=== PATIENT | female | born 1960 | race Caucasian/White ===

== ENCOUNTER → 2016-07-17 | Outpatient (CLI) | payer BC, OTHER ==
--- NOTE | 2016-07-17 16:15 | MA ---
Screening Digital Mammogram With iCAD Analysis Reason for Examination: Routine screening. Breast parenchymal density: Type C; Heterogeneously dense. Technique: Four views of each breast are obtained including CC and oblique lateral Burke (implant di splaced) and non-Burke (implant not displaced) views. Digital breast tomosynthesis was performed in the implant-displaced MLO projection with reconstruction at 1.0 mm slice thickness and composite MLO views reconstructed. This examination is processed by the iCAD computer aided detection system. Comparison: May 2015, April 2014, January 2013, December 2012, November 2008.. Findings: Breast implants are in place bilaterally. iCAD is reviewed.No suspicious areas are identifi ed. There has been no significant change in the appearance of either breast. Breast implants diminish the sensitivity of mammography. Impression: Negative mammogram. BI-RADS 1. Recommendation: Routine screening is recommended in one year as long as physical examination is negat connie. [facility] will send a result letter to the patient. Negative mammography should not preclude additional workup of a clinically suspicious finding. The patient's information is entered into a reminder system with a target due date for her next mammo gram.
== END ==
LOC: FIMAGING 13:33
DX: Z12.31 Encounter for screening mammogram for malignant neoplasm of breast (principal)

== ENCOUNTER → 2017-08-28 | Outpatient (CLI) | payer OTHER | LOC: FIMAGING 15:48 | PROVIDERS: ATTEND Nurse Practitioner Women's Health | DX: Z12.31 Encounter for screening mammogram for malignant neoplasm of breast (principal) ==

== ENCOUNTER → 2018-09-02 | Outpatient (CLI) | payer OTHER | LOC: FIMAGING 07:41 | PROVIDERS: ATTEND Nurse Practitioner Women's Health | DX: Z12.31 Encounter for screening mammogram for malignant neoplasm of breast (principal) ==